=== PATIENT | male | born 1960 | race Caucasian/White ===

== ENCOUNTER → 2017-10-13 | Outpatient (CLI) | payer BC ==
[~2017-10-13] MED LIST: CEFU250 PO; CYCL-277 PO; HYDR-385 PO; IBUP800T37 PO; MELO-205 PO
[2017-10-13 08:14] LABS: PLATELET COUNT, AUTOMATED 173 K/uL (150-450)
[2017-10-13 08:58] LABS: LDL CHOLESTEROL 108 mg/dl
== END ==
LOC: LAB 06:52
PROVIDERS: ATTEND Internal Medicine
DX: R00.2 Palpitations (principal); G47.33 Obstructive sleep apnea (adult) (pediatric); Z99.89 Dependence on other enabling machines and devices
CPT/HCPCS: 36415; 82040; 82247; 82310; 82374; 82435; 82465; 82565; 82947; 83718; 84075; 84132; 84153; 84155; 84295; 84443; 84450; 84460; 84478; 84520; 85025

== ENCOUNTER → 2017-10-18 | Outpatient (CLI) | payer BC | LOC: RESP 02:38 | PROVIDERS: ATTEND Internal Medicine | DX: R00.2 Palpitations (principal) | CPT/HCPCS: 93017 ==

== ENCOUNTER → 2019-01-29 | Outpatient (CLI) | payer BC ==
[2019-01-29 07:46] LABS: PLATELET COUNT, AUTOMATED 162 K/uL (150-450)
[2019-01-29 08:26] LABS: LDL CHOLESTEROL 96 mg/dl
== END ==
LOC: LAB 06:59
PROVIDERS: ATTEND Internal Medicine
DX: Z12.5 Encounter for screening for malignant neoplasm of prostate (principal); Z00.00 Encounter for general adult medical examination without abnormal findings; M19.90 Unspecified osteoarthritis, unspecified site; G47.33 Obstructive sleep apnea (adult) (pediatric)
CPT/HCPCS: 36415; 81001; 82040; 82247; 82310; 82374; 82435; 82465; 82565; 82947; 83718; 84075; 84132; 84153; 84155; 84295; 84443; 84450; 84460; 84478; 84520; 85025